=== PATIENT | male | born 2000 | race Caucasian/White ===

== ENCOUNTER 2020-11-13 13:33 | Emergency (ER) | payer OTHER ==
[~2020-11-13] VITALS: Ht 180.3 cm; Wt 71.2 kg
--- NOTE | 2020-11-13 13:42 | NUR ---
PT ALSO C/O NECK PAIN. PT PLACED IN C-COLLAR IN TRIAGE. YEIMI SILVER PIT PT AND AWAITING CT FROM LOBBY.
--- NOTE | 2020-11-13 14:33 | NUR ---
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
--- NOTE | 2020-11-13 14:41 | NUR ---
PT TO ROOM AT THIS TIME. VSS. PT TO CT WITH TECH TRANSPORT
--- NOTE | 2020-11-13 15:33 | NUR ---
CERVICAL SPINE CT RESULTS REVIEWED. NEG EXAM. C-COLLAR REMOVED, HOB UP 35 DEGREES. CHART UP FOR RECHECK. PT AWARE.
[2020-11-13 16:22] VITALS: BP 143/84
== END 2020-11-13 16:23 | disposition home or self-care (01) ==
LOC: ED 16:10
DX: S16.1XXA Strain of muscle, fascia and tendon at neck level, initial encounter (principal); S09.90XA Unspecified injury of head, initial encounter; V89.2XXA Person injured in unspecified motor-vehicle accident, traffic, initial encounter; Y93.89 Activity, other specified; Y92.410 Unspecified street and highway as the place of occurrence of the external cause; Y99.8 Other external cause status
CPT/HCPCS: 70450; 72125; 99285